=== PATIENT | male | born 1955 | race Caucasian/White ===

== ENCOUNTER 2019-07-01 09:32 | Emergency (ER) | payer BC ==
[~2019-07-01] VITALS: Ht 182.9 cm; Wt 88.7 kg
[~2019-07-01 09:32] MED LIST: CEPH-443 PO; SULF1TAB31 PO
[2019-07-01 09:36] VITALS: BP 190/93; Ht 182.9 cm; Wt 88.7 kg
[2019-07-01] MEDS ORDERED: LIDOCAINE 1% (MPF) 5 ML VIAL INJ ONE (10:30)
[2019-07-01 10:51] VITALS: PULSE 77; RESP 18
== END 2019-07-01 10:51 | disposition home or self-care (01) ==
LOC: FTE 09:32
DX: L02.414 Cutaneous abscess of left upper limb (principal); I10 Essential (primary) hypertension; F17.210 Nicotine dependence, cigarettes, uncomplicated; Z98.61 Coronary angioplasty status
CPT/HCPCS: 99283